=== PATIENT | female | born 1970 | race Caucasian/White ===

== ENCOUNTER 2024-01-21 11:01 | Outpatient (CLI) | payer OTHER, SELFPAY ==
--- NOTE | 2024-01-21 11:08 | XR_ITS ---
WS: [id number] Right hip, AP and frog-leg views, 01/21/2024 Clinical Data: M25.551 - Pain in right hip Comparison: None. Findings: No fractures or dislocations are seen. The right hip joint is intact with no narrowing, sclerosis, er osion or fragmentation of the right femoral head. There is calcification and irregularity over the gr eater trochanter. The soft tissues are not remarkable. The adjacent pelvis is normal. XR/XR hip RT 2-3V wo/w pel* [id number] Impression: 1. Negative right hip. 2. Calcification and irregularity of the right greater trochanter. Tonnis classification: grade 0: normal radiographs
== END 2024-01-21 11:02 | disposition home or self-care (01) ==
LOC: RAD 11:03
PROVIDERS: PCP Nurse Practitioner Family; Visit Provider Nurse Practitioner Family
DX: M25.551 Pain in right hip (principal); M89.8X8 Other specified disorders of bone, other site
CPT/HCPCS: 73502

== ENCOUNTER → 2024-02-17 09:43 | Outpatient (BNVA) | payer OTHER, SELFPAY | PROVIDERS: PCP Nurse Practitioner Family; Visit Provider Nurse Practitioner | DX: M16.11 Unilateral primary osteoarthritis, right hip (principal); M54.31 Sciatica, right side | CPT/HCPCS: 73522 ==

== ENCOUNTER 2024-03-06 12:01 | Outpatient (CLI) | payer OTHER, SELFPAY ==
--- NOTE | 2024-03-06 12:06 | XR_ITS ---
WS: [id number] Right hip, AP and frog-leg views, 03/06/2024 Clinical Data: M25.551 - Pain in right hip Comparison: Pelvis and both hips, 02/17/2024 Findings: No fractures or dislocations are seen. The right hip shows no erosion, sclerosis, narrowing, cyst for mation or fragmentation of the right femoral head. There is a small right acetabular lip. The greater trochanter shows adjacent calcifications. The soft tissues are not remarkable. The adjacent pelvis i s normal. XR/XR hip RT 2-3V wo/w pel* [id number] Impression: Minimal lipping of the right acetabulum. Tonnis classification: grade 1: sclerosis of femoral head and acetabulum or sli ght joint space narrowing or slight lipping at joint margins
== END 2024-03-06 12:02 | disposition home or self-care (01) ==
LOC: RAD 12:02
PROVIDERS: PCP Nurse Practitioner Family; Visit Provider Nurse Practitioner Family
DX: M25.551 Pain in right hip (principal)
CPT/HCPCS: 73502